=== PATIENT | female | born 1965 | race Caucasian/White ===

== ENCOUNTER 2024-07-14 11:20 | Emergency (ER) | payer MEDICAID, SELFPAY ==
[2024-07-14 11:22] VITALS: BP 159/94; PULSE 94; RESP 18; TEMP 36.4; O2SAT 98; BMI 29.1
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
[2024-07-14] MEDS: traMADol 50 MG Tablet PO (12:49)
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
[2024-07-14 14:48] VITALS: BP 131/79; PULSE 76; RESP 16; TEMP 36.4; O2SAT 100
== END 2024-07-14 14:49 | disposition home or self-care (01) ==
PROVIDERS: Emergency Provider Emergency Medicine; PCP Internal Medicine; Visit Provider Emergency Medicine
DX: S80.11XA Contusion of right lower leg, initial encounter (principal); S50.11XA Contusion of right forearm, initial encounter; V47.5XXA Car driver injured in collision with fixed or stationary object in traffic accident, initial encounter
CPT/HCPCS: 70450; 70486; 72125; 73090; 73590; 99282